=== PATIENT | female | born 1965 | race Caucasian/White ===

== ENCOUNTER → 2021-01-15 | Outpatient (CLI) | payer BC ==
--- NOTE | 2021-01-15 14:29 | Diagnostic Imaging Report ---
INDICATION: Abdominal pain and bloating. PROCEDURE: Ultrasound abdomen complete. TECHNIQUE: Multiple Real-time grayscale images were obtained of the abdomen in various projections. FINDINGS: There is a small echogenic area near the milagro hepatis of the liver, consistent with a 1 cm hemangioma. No suspicious liver lesion is seen. The gallbladder is full of gallstones but the gallbladder wall is not thickened. The bile ducts are not dilated. The head and body of the pancreas are normal. The tail is obscured by bowel gas. The spleen and kidneys are normal. No abnormality of the aorta or IVC is seen. There is no ascites. IMPRESSION: The gallbladder is full of gallstones with no acute abnormality evident. Dictated by: Dictated on workstation # [id number]
== END ==
LOC: RAD 12:48
PROVIDERS: ATTEND Nurse Practitioner Family
DX: K80.80 Other cholelithiasis without obstruction (principal)
CPT/HCPCS: 76700